=== PATIENT | male | born 1995 | race Two or more races ===

== ENCOUNTER 2017-01-23 09:14 | Emergency (ER) | payer OTHER ==
[2017-01-23 11:44] VITALS: BP 133/73
== END 2017-01-23 11:44 | disposition home or self-care (01) ==
LOC: ED 09:14
DX: J20.9 Acute bronchitis, unspecified (principal); F17.210 Nicotine dependence, cigarettes, uncomplicated
CPT/HCPCS: J7613; J7620; J7644; Q0092